=== PATIENT | female | born 1970 | race African-American/Black ===

== ENCOUNTER 2018-05-24 09:39 | Emergency (ER) | payer OTHER ==
[~2018-05-24] VITALS: Ht 170.2 cm; Wt 106.6 kg
--- NOTE | ~2018-05-24 | EKG ---
[place] [address] [facility] [place] [address] ELECTROCARDIOGRAM REPORT Name: SHAD ROJAS Room #: [facility]OL[facility]CENTSZurdo#: [id number] Admission: 05/24/18 Attend Phys: Discharge: 05/24/18 Date of : 74 Report #: [id number] THIS REPORT FOR: //name// 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: MARIE : 1970 Requested By: Reta Randall Order Number: [id number] MD: Aleksandr Luo Measurements Intervals [place] Rate: 67 P: 28 RI: 159 QRS: 11 QRSD: 96 T: 26 QT: 412 QTc: 435 Interpretive Statements Sinus rhythm Anteroseptal infarct, old Compared to ECG 06/09/2011 21:51:48 Septal Q waves are now present Sinus tachycardia no longer present Electronically Signed On 05-25-2018 7:26:26 CDT by Aleksandr Luo [email or web address] <ELECTRONICALLY SIGNED> By: Aleksandr Luo MD, [facility] 05/25/18 0726 08 Aleksandr Luo MD, [facility] /EPI
[~2018-05-24 09:39] MED LIST: AMOXICILLIN 50500 M1 PO; ASPIRIN325 PO; BIRTH CONTROL; OCELLA 3 MG-0.1 EACH PO; PERCOCET PO
[2018-05-24 10:12] LABS: URINE BILIRUBIN NEGATIVE (Negative); URINE BLOOD 1+ (Negative); URINE CLARITY CLEAR; URINE COLOR YELLOW; URINE GLUCOSE-RANDOM* NEGATIVE (Negative); URINE KETONES NEGATIVE (Negative); URINE LEUKOCYTES-REFLEX TRACE (Negative); URINE NITRITE-REFLEX NEGATIVE (Negative); URINE PROTEIN (DIPSTICK) NEGATIVE (Negative); URINE SPECIFIC GRAVITY 1.015 (1.005-1.035); URINE UROBILINOGEN 0.2 E.U./dl (0.2-1.0)
[2018-05-24 10:17] LABS: ABSOLUTE NEUTROPHILS 4.1 thou/uL (1.4-8.2); EOSINOPHILS 1.9 % (0.0-3.0); HEMATOCRIT 39.8 % (37.0-47.0); HEMOGLOBIN 13.1 gm/dL (12.0-15.0); LYMPHOCYTES 33.5 % (24.0-44.0); MCHC 32.9 g/dL (28.0-37.0); MCV 79.2 fL (80.0-100.0); MONOCYTES 4.7 % (1.0-8.0); PLATELET COUNT 277 thou/uL (150-400); POLYS 58.9 % (36.0-66.0); RBC 5.03 mil/uL (4.20-5.00); RDW 14.3 % (10.5-14.5)
[2018-05-24 10:18] LABS: SQUAMOUS >10 Many /LPF (0-3)
[2018-05-24 10:19] LABS: CASTS None Seen /LPF (None Seen); CRYSTALS None Seen /LPF (None Seen); URINE RBC 3-10 Few /HPF (0-2); URINE WBC-REFLEX 6-15 Few /HPF (0-5)
[2018-05-24 10:26] LABS: ANION GAP 7 mmol/L (7-16); BUN 9 mg/dL (7-18); CALCIUM 9.2 mg/dL (8.5-10.1); CHLORIDE 104 mmol/L (98-107); CO2 29 mmol/L (21-32); CREATININE 0.9 mg/dL (0.6-1.0); GLUCOSE 116 mg/dL (74-106); POTASSIUM 3.8 mmol/L (3.5-5.1); SODIUM 140 mmol/L (136-145)
[2018-05-24 10:35] LABS: ALBUMIN 3.9 g/dL (3.4-5.0); SGOT 16 U/L (15-37); SGPT 23 U/L (30-65); TOTAL BILIRUBIN 0.4 mg/dL (<0.1-1.0); TOTAL PROTEIN 7.7 g/dL (6.4-8.2); TROPONIN-I <0.06 ng/mL (<0.06)
[2018-05-24] MEDS ORDERED: KEFLEX500 M1 PO (11:22)
[2018-05-24] MEDS ORDERED: ONDANSETRON HCL4 M2 PO (11:22)
[2018-05-24 11:36] VITALS: BP 130/86
== END 2018-05-24 11:40 | disposition home or self-care (01) ==
LOC: ER 09:39
PROVIDERS: Nurse Practitioner Family
DX: R51 Headache (principal); N39.0 Urinary tract infection, site not specified; R53.83 Other fatigue; Z90.710 Acquired absence of both cervix and uterus